=== PATIENT | female | born 1945 | race Caucasian/White ===

== ENCOUNTER → 2022-10-09 14:09 | Outpatient (REF) | payer MEDICARE, OTHER, SELFPAY ==
--- NOTE | 2022-10-09 14:19 | CA_ITS ---
Transthoracic Echocardiogram Patient (Last, First, Middle): Ale Hamlin, Gender: Female Date of : 1945 Age: 77 Procedure Date: 10/09/2022 Procedure Type: Transthoracic Echocardiogram Location: [facility] Height: 157.48 cm Weight: 92.53 kg BSA: 1.93 m2 Heart Rate: bpm BP: 110 / 70 mmHg [employer]: TO Referring MD: Giancarlo Felder MD Symptoms: [id number] Study Quality: Fair ECG Rhythm: Sinus Conclusions: - The left ventricular systolic function is normal. The calculated ejection fraction is 58% by biplane method. - There is moderate posterior mitral annular calcification. There is mild mitral valve stenosis. - There is mild calcification of the aortic valve. Findings Left Ventricle Normal left ventricular cavity size. There is normal left ventricular wall thickness. The left ventricular systolic function is normal. The calculated ejection fraction is 58% by biplane method. There is no evidence of regional wall motion abnormalities. Evidence suggests grade I (mild) diastolic dysfunction. Right Ventricle Normal right ventricular cavity size and systolic function. Atria Both atria are normal in size. Aortic Valve There is a normal trileaflet aortic valve. There is mild calcification of the aortic valve. There is no aortic valve stenosis. There is no aortic valve regurgitation. Mitral Valve There is moderate posterior mitral annular calcification. There is trace mitral valve regurgitation. There is mild mitral valve stenosis. Pulmonic Valve The pulmonic valve is likely normal. Tricuspid Valve There is trace tricuspid valve regurgitation. There is no evidence of pulmonary hypertension. Great Vessels The asc aorta is normal in size. Venous The inferior vena cava is mildly dilated and collapses greater than 50% with inspiration. Pericardium/Pleural There is no evidence of pericardial effusion. Prior Study Comparison No prior study available for comparison. Measurements 2D Linear Measurements IVSd: 0.98 0.6-0.9/0.6-1.0 cm LVIDd: 4.30 3.9-5.3/4.2-5.9 cm LVIDd Index: 2.23 2.4-3.2/2.2-3.1 cm/m2 LVIDs: 3.31 2.0-3.6 cm LVPWd: 0.95 0.7-1.1 cm LA Diam: 3.20 2.7-3.8/3.0-4.0 cm LAIDs Index: 1.66 1.5-2.3 cm/m2 LV Mass: 168.67 67-162/88-224 g LV Mass Index: 87.39 43-95/49-115 g/m2 LVOT Diam: 2.00 3.0+(-)1.3 cm 2D Systolic Function EF 4C: 54.60 >55% EF 2C: 62.60 >55% EF BiP: 57.60 >55% Mitral Valve MV VTI: 0.27 MV Pk Pascual: 1.48 MV Mn Pascual: 0.91 MV Pk Grad: 9.00 MV Mn Grad: 4.00 MV Pk E: 0.90 MV PK A: 1.08 MV Decel Time: 172.00 E/A: 0.80 E'Lateral: 8.27 E'Medial: 5.87 E/E' Med: 15.20 E/E' Lat: 10.80 PHT: 50.00 MVA PHT: 4.40 MVA Continuity: 2.39 Decel Dane: 5.20 Aortic Valve AoV Pk Pascual: 1.62 AoV Mn Pascual: 1.09 AoV VTI: 0.32 AoV Pk Grad: 10.00 Aov Mn Grad: 6.00 CHETAN Cont.VTI: 2.01 LVOT LVOT Pk Pascual: 0.99 LVOT Mn Pascual: 0.76 LVOT VTI: 0.21 LVOT Pk Grad: 4.00 LVOT Mn Grad: 2.00 LVOT Diam: 2.00 LVOT Area: 3.14 Diastolic Function MV Pk E: 0.90 MV Pk A: 1.08 E/A: 0.80 E'Medial: 5.87 E/E' Med: 15.20 E' Laterial: 8.27 E/E' Lat: 10.80 Right Ventricle TAPSE (mm): 22.00 TVS' Pascual: 10.70 Tricuspid Valve TR Pk Pascual: 2.51 TR Pk Grad: 25.00 RA Press: 8.00 RVSP: 33.00 Great Vessels Aorta Sinus of Valsalva: 3.09 2.0-3.5 cm Ao Asc: 3.50 2.1-3.4 cm Updated in Other Vendor System with Status of Final Frankie Ch MD electronically signed on 10/10/2022 11:12:45 AM with status of Final
== END ==
LOC: HO.CARD 14:09
PROVIDERS: Visit Provider Family Medicine
DX: R06.09 Other forms of dyspnea (principal); M79.89 Other specified soft tissue disorders
CPT/HCPCS: 93306